=== PATIENT | female | born 1975 | race Caucasian/White ===

== ENCOUNTER → 2024-11-03 | Day surgery (SDC) | payer OTHER ==
[~2024-11-03] VITALS: Ht 157.5 cm; Wt 98.4 kg
[~2024-11-03] MED LIST: ALBU18HF2 INH; DULO60CA64 PO; FENTANYL CITRATE/PF 50MCG/ML 2ML VIAL ONE; FOLI-43 PO; GLYCOPYRROLATE 0.2MG/ML VIAL 5ML IV PRN; HEPARIN 1 UNIT/ML(NEONATAL) IV SCH; HYDRALAZINE 20MG/ML VIAL IV PRN; LABETALOL 5MG/ML 4ML INJ IV PRN; LACTATED RINGERS 1,000 ML IV SCH; MAGN500C4 PO; METH2.5T PO; METO75TA PO; NIFE-49 PO; ONDANSETRON 4MG/2ML INJ IV PRN; PROPOFOL 200MG/20ML VIAL IV ONE; [UNRECOGNIZED DRUG - CODE] PO
[2024-11-03 12:22] VITALS: BP 131/73; PULSE 76; RESP 25
[2024-11-03] MEDS: HYDROMORPHONE HCL/PF 1MG/ML INJ IV PRN (12:22)
[2024-11-03] MEDS: ACETAMINOPHEN 1000MG/100ML 100 ML IV SCH (12:42)
== END | disposition home or self-care (01) ==
LOC: OR 07:22
PROVIDERS: ATTEND Internal Medicine Gastroenterology
DX: Z12.11 Encounter for screening for malignant neoplasm of colon (principal); D12.5 Benign neoplasm of sigmoid colon; K64.8 Other hemorrhoids; I10 Essential (primary) hypertension; K21.9 Gastro-esophageal reflux disease without esophagitis; J45.909 Unspecified asthma, uncomplicated; Z85.038 Personal history of other malignant neoplasm of large intestine; Z85.71 Personal history of Hodgkin lymphoma; Z90.49 Acquired absence of other specified parts of digestive tract; Z92.21 Personal history of antineoplastic chemotherapy; Z88.8 Allergy status to other drugs, medicaments and biological substances
CPT/HCPCS: 45380; 82962; 88305; 93005; J3010; J2704; J1171; J1644; J0131